=== PATIENT | male | born 1970 | race Caucasian/White ===

== ENCOUNTER → 2022-05-07 10:40 | Outpatient (CLI) | payer OTHER, SELFPAY ==
--- NOTE | ~2022-05-07 | XR_ITS ---
EXAMINATION: XR chest 2V 05/07/2022 11:35 INDICATION: Cough PROCEDURE: 2 view chest COMPARISON: No prior studies for comparison. FINDINGS: The lungs are clear. The cardiomediastinal silhouette is within normal limits. There are no pleural effusions. There is no pneumothorax suspected. IMPRESSION: 1: NO ACUTE CARDIOPULMONARY DISEASE. Reviewed, dictated and finalized at location L. 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
== END ==
PROVIDERS: PCP Clinical Nurse Specialist; Visit Provider Clinical Nurse Specialist
DX: R05.9 Cough, unspecified (principal)
CPT/HCPCS: 71046

== ENCOUNTER → 2022-11-03 08:09 | Outpatient (CLI) | payer OTHER, SELFPAY ==
--- NOTE | ~2022-11-03 | US_ITS ---
Abdominal Sonogram: Real-time sonographic imaging of the abdomen was performed. Clinical History: Abnormal serum enzyme levels Findings: The liver appears echogenic, with no evidence of mass lesion or bile duct dilatation. Main portal vein demonstrates normal direction of flow. The spleen is enlarged, measuring 15.7 cm in tanvi th. The gallbladder is well distended, and appears normal with no evidence of gallstone or wall thic kening. The common bile duct measures 5 mm. The visualized pancreas, aorta, and IVC are unremarkable . The right kidney measures 11.1 cm in length and the left kidney measures 12.2 cm. There is no hyd ronephrosis or renal calculus. Impression: Diffuse fatty infiltration of liver. Splenomegaly. Reviewed, dictated and finalized at location . Impression: Diffuse fatty infiltration of liver. Splenomegaly.
== END ==
PROVIDERS: PCP Physician Assistant; Visit Provider Physician Assistant
DX: R74.8 Abnormal levels of other serum enzymes (principal); K76.0 Fatty (change of) liver, not elsewhere classified; R16.1 Splenomegaly, not elsewhere classified
CPT/HCPCS: 76700

== ENCOUNTER 2023-11-24 15:43 | Outpatient (CLI) | payer OTHER, SELFPAY ==
--- NOTE | ~2023-11-24 | XR_ITS ---
XR toe 1st LT min 2V Ordering provider: Brando Cali MD History: . L97.509 - Non-pressure chronic ulcer of other part of uns... . Comparison: None. FINDINGS: BONES: No acute fracture or dislocation. Degenerative changes in the head of the metatarsal bones. Michaels llux valgus. JOINT SPACES: Osteoarthritic changes of the first metatarsophalangeal joint. SOFT TISSUES: Normal. IMPRESSION: No acute osseous abnormality. Osteoarthritic changes of the first metatarsophalangeal joint. Reviewed, dictated and finalized at location A.
== END 2023-11-24 15:44 | disposition home or self-care (01) ==
LOC: MICIMG 15:45
PROVIDERS: PCP Emergency Medicine; Visit Provider Emergency Medicine
DX: L97.509 Non-pressure chronic ulcer of other part of unspecified foot with unspecified severity (principal); M19.072 Primary osteoarthritis, left ankle and foot
CPT/HCPCS: 73660

== ENCOUNTER 2024-11-21 17:32 | Outpatient (CLI) | payer OTHER, SELFPAY ==
--- NOTE | ~2024-11-21 | XR_ITS ---
EXAMINATION: HAND-MARGARITO ARTHRITIS 3+VIEWS DATE: 11/21/2024 17:44 INDICATION: Osteoarthritis TECHNIQUE: 7 images were obtained COMPARISON: None. FINDINGS: Bone mineralization is within normal limits. No fracture. No dislocation. Severe degenerative change in the first carpometacarpal joint in the left hand. Moderate degenerative change in the first metacarpophalangeal joint in the left hand. Severe degenerative change in the first carpal metacarpal joint in the right hand. Moderate degenerative change in the first metacarpophalangeal joint in the right hand. Soft tissue swelling about both hands. IMPRESSION: 1. Severe degenerative change in the bilateral first carpometacarpal joints. Reviewed, dictated and finalized at location Q.
--- OUTSIDE RECORDS SUMMARY | 2024-11-21 17:35 | XMS_ITS | Clinical Summary ---
Author Organization [facility] Address [address] [place] [address] Care Team Providers Care Joint Terminal Attack Controller Name Role Phone Brando Cali MD Primary Care Provider [phone] Allergies Active Allergy Reactions Criticality Noted Date Comments Levofloxacin Penicillins Active Problems Problem Noted Date Diagnosed Date Carpal tunnel syndrome 11/19/2015 Family History Medical History Relation Name Comments Arthritis Mother Family history of arthritis - (Added by TW Conv) Hypertension Mother Family history of hypertension - (Added by TW Conv) Relation Name Status Comments Mother Social History Tobacco Use Types Packs/Day Years Used Date Smoking Tobacco: Never Personal Safety Answer Date Recorded Have you ever been in or are you currently in a harmful physical or emotional relationship or is someone making you feel afraid or unsafe? 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 Gender Identity Not on file Sexual Orientation Not on file Obstetrics History Last Filed Vital Signs Vital Sign Reading Time Taken Comments Blood Pressure 151/70 02/20/2024 7:15 PM SCHOOL BUS DRIVER/MECHANIC Pulse 98 02/20/2024 7:15 PM SCHOOL BUS DRIVER/MECHANIC Temperature 36.8 C (98.3 F) 02/20/2024 4:19 PM SCHOOL BUS DRIVER/MECHANIC Respiratory Rate 19 02/20/2024 7:15 PM SCHOOL BUS DRIVER/MECHANIC Oxygen Saturation 95% 02/20/2024 7:15 PM SCHOOL BUS DRIVER/MECHANIC Inhaled Oxygen Concentration - - Weight 133.8 kg (295 lb) 02/20/2024 4:19 PM SCHOOL BUS DRIVER/MECHANIC Height 188 cm (6' 2) 02/20/2024 4:19 PM SCHOOL BUS DRIVER/MECHANIC Body Mass Index 37.88 02/20/2024 4:19 PM SCHOOL BUS DRIVER/MECHANIC Plan of Treatment Health Maintenance Due Date Last Done Comments Colon Cancer Screening-Colonoscopy 1970 Depression Screening 1970 Hepatitis C Screening 1970 Prostate Cancer Screening-PSA 1969 DTaP/Tdap/Td Vaccine (1 - Tdap) 1980 Hepatitis B Screening 08/18/1987 Regular Well Visit/Exam 18-64 08/18/1987 Pneumococcal vaccine <65 (1 of 2 - PCV) 1988 Zoster Vaccine (1 of 2) 08/18/2019 Influenza Vaccine (#1) 2024 Insurance CIGNA CIGNA Care Teams Joint Terminal Attack Controller Relationship Specialty Start Date End Date Brando Cali MD [address] [place] [address] [place] [address] PCP - General Family Medicine 02/20/24
--- OUTSIDE RECORDS SUMMARY | 2024-11-21 17:35 | XMS_ITS | Clinical Summary ---
Author Organization [facility] Address [address] [place] [address] Phone Care Team Providers Care Supervisor Liquefaction Name Role Phone Brando Cali MD Primary Care Provider [phone] Allergies Active Allergy Reactions Criticality Noted Date Comments Levofloxacin Anaphylaxis High 03/03/2018 Penicillins Hives Low 03/03/2018 Medications diclofenac (VOLTAREN) 75 MG Tablet Delayed ResponseIndicat ions:Osteoarthr itis,knee pain Take 75 mg by mouth 3 times daily as needed for Moderate or more severe pain. Indications: Joint Damage causing Pain and Loss of Function, knee pain Active montelukast (SINGULAIR) 10 MG Tablet Take 10 mg by mouth every evening. Active albuterol 108 (90 Base) MCG/ACT Aerosol Solution take 2 Puffs by inhalation every 4 hours as needed. Active lisinopril (PRINIVIL, ZESTRIL) 40 MG Tablet Take 40 mg by mouth daily. Active OMEPRAZOLE PO Take 20 mg by mouth daily. Active Multiple Vitamins-Minera ls (MULTIVITAL PO) Take 1 Tablet by mouth daily. Active vitamin B complex-C (ALLBEE-C) Tablet Take 1 Tablet by mouth daily. Active cetirizine (ZyrTEC) 10 MG Tablet Take 10 mg by mouth daily. Active Active Problems Problem Noted Date Diagnosed Date NSTEMI (non-ST elevated myocardial infarction) 1 03/17/2022 Status post coronary artery stent placement 01/06 Elevated LFTs 01/15/2023 Hypertension 01/15/2023 Asthma 01/15/2023 Family History Medical History Relation Name Comments Heart Attack Father Hypertension Father Congestive Heart Failure Maternal Grandfather High Cholesterol Mother Hypertension Mother Osteoarthritis Mother Congestive Heart Failure Paternal Grandfather Relation Name Status Comments Father Maternal Grandfather Mother Alive Paternal Grandfather Social History Tobacco Use Types Packs/Day Years Used Date Smoking Tobacco: Never Smokeless Tobacco: Never Tobacco Cessation:Counseling Given: Not Answered Alcohol Use Standard Drinks/Week Comments Yes 10 (1 standard drink = 0.6 oz pu re alcohol) socially -twice a week Sexually Active Control Partners Comments Not Currently Sex and Gender Information Value Date Recorded Sex Assigned at Not on file 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 Gender Identity Not on file Sexual Orientation Not on file Last Filed Vital Signs Vital Sign Reading Time Taken Comments Blood Pressure 146/98 01/19/2023 1:12 PM GLASSWARE ENGRAVER Pulse 83 01/19/2023 1:12 PM GLASSWARE ENGRAVER Temperature 36.4 C (97.6 F) 01/19/2023 1:12 PM GLASSWARE ENGRAVER Respiratory Rate 16 01/19/2023 1:12 PM GLASSWARE ENGRAVER Oxygen Saturation 98% 01/19/2023 1:12 PM GLASSWARE ENGRAVER Inhaled Oxygen Concentration - - Weight 135.8 kg (299 lb 6.4 oz) 01/19/2023 1:12 PM GLASSWARE ENGRAVER Height 188 cm (6' 2) 01/19/2023 1:12 PM GLASSWARE ENGRAVER Body Mass Index 38.44 01/19/2023 1:12 PM GLASSWARE ENGRAVER Plan of Treatment Health Maintenance Due Date Last Done Comments TdaP Immunization 1970 Hepatitis B Immunization (1 of 3 - 19+ 3-dose series) 1988 Pneumococcal Immunization (5 0+ years) (1 of 2 - PCV) 1988 Cologuard 2014 Colonoscopy 2014 Colorectal Cancer Screening 2014 Immunochemical Fecal Occult Blood 2014 Zoster Immunization (1 of 2) 08/18/2019 PSA Discussion 2024 Influenza Immunization (#1) 2024 SARS-COV-2 Immunization (3 - 2024- season) 2024 08/22/2020, 07/25/2020 Respiratory Syncytial Virus (RSV) Immunization (Adult) (1 - 1-dose 75+ series) 2044 Hepatitis C Virus (HCV) Screening Completed 01/21/2023 Human Papillomavirus (HPV) Immunization Aged Out No longer eligible b ased on patient's age to complete this topic Meningococcal Immunization (ACWY) Aged Out No longer eligible b ased on patient's age to complete this topic Rotavirus Immunization Aged Out No lo nger eligible based on patient's age to complete this topic Medical Devices Implanted Type Area Fence Post Driver Device Identifier Shelf Expiration Date Model / Serial / Lot System Coronary Stent Xience Skypoint Everolimus Eluting 4.00 Mm X 28 Mm / Rapid-Exchange - [id number] Implanted:Qty: 1 on 01/15/2023 by Heri Fischer MD at [facility] IMPLANT [employer] [id number] 12/22/2023 [id number] / / [id number] System Coronary Stent Xience Skypoint Everolimus Eluting 3.50 Mm X 38 Mm / Rapid-Exchange - [id number] Implanted:Qty: 1 on 01/15/2023 by Heri Fischer MD at [facility] IMPLANT [employer] [id number] 07/06/2025 [id number] / / [id number] Procedures Procedure Name Priority Date/Time Associated Diagnosis Comments HEPATITIS PANEL ACUTE (AHP) Routine 01/21/2023 11:21 AM GLASSWARE ENGRAVER NSTEMI (non-ST elevated myocardial infarction) (HCC) from Last 3 Months or Most Recently Relevant to Health Maintenance Results * HEPATITIS PANEL ACUTE (AHP) (01/21/2023 11:21 AM GLASSWARE ENGRAVER) HEPATITIS A IGM ANTIBODY NON DETECTED NON DETECTED [facility] [id number] B 01/21/2023 11:59 PM GLASSWARE ENGRAVER [facility] Comment: IGM Antibodies to HAV not detected. Does not exclude early acute or recovered HAV infection. HEP B CORE AB (IGM) NON DETECTED NON DETECTED [facility] AR[facility] [id number] B 01/21/2023 11:59 PM GLASSWARE ENGRAVER [facility] Comment:IGM anti-HBC not det ected. Does not exclude the possibility of exposure to or infection with HBV. HEPATITIS B SURFACE ANTIGEN NON DETECTED NON DETECTED [facility] [id number] B 01/21/2023 11:59 PM GLASSWARE ENGRAVER [facility] Comment:A nonreactive test r esult does not exclude the possibility of exposure to or infection with Hepatitis B virus. A nonreactive test result in individuals with prior exposure to hepatitis B may be due to antigen levels below the detection limit of this assay or lack of antigen reactivity to the antibodies in this assay. hepatitis C antibody 0.09 <1 S/CO [facility] [id number] B 01/21/2023 11:59 PM GLASSWARE ENGRAVER [facility] Comment: Signal/Cutoff ratio < 0.79 is Nondetected Signal/Cutoff ratio 0.80-0.99 is Grayzone Signal/Cutoff ratio > 0.99 is Detected Supplemental assays are recommended if signal/cutoff ratio is >/=1.00. Signal/cutoff ratio result >/= 5.00 is 97% predictive of positivity for recombinant immunoblot assay (RIBA) and will be reported to the [place] Department of Public Health as required. Blood Venipuncture / Unknown 01/21/2023 11:21 AM GLASSWARE ENGRAVER 01/21/2023 12:34 PM GLASSWARE ENGRAVER us Leena Soriano MD HEMATOLOGY ORDERABLES Final R esult [facility] [address] [place] [address], from Last 3 Months or Most Recently Relevant to Health Maintenance Insurance [address] [address] Advance Directives * Full Code (Latest Code Status on File) Date Activated Date Inactivated Comments 01/15/2023 9:56 AM 01/16/2023 1:51 PM CPR-Full T reatment: FULL ARREST: Attempt Resuscitation/CPR wit intubation and mechanical ventilation. PRE-ARREST: Use entire range of life support measures to stabilize the patient. Care Teams Supervisor Liquefaction Relationship Specialty Start Date End Date Brando Cali MD [address] [facility] [address] [address] PCP - General Family Medicine 01/18/23
== END 2024-11-21 17:33 | disposition home or self-care (01) ==
PROVIDERS: PCP Nurse Practitioner Family; Visit Provider Plastic Surgery
DX: M18.0 Bilateral primary osteoarthritis of first carpometacarpal joints (principal)
CPT/HCPCS: 73130

== ENCOUNTER 2025-02-19 07:26 | Outpatient (CLI) | payer OTHER, SELFPAY ==
--- NOTE | ~2025-02-19 | NM_ITS ---
EXAMINATION: NM noni stress w perfusion DATE: 02/19/2025 10:26 INDICATION: Encounter for preprocedural cardiovascular examination TECHNIQUE: Rest images were obtained following intravenous administration of 10.3 mCi Tc99m tetrofosmin (Myoview). The patient was infused intravenously with Lexiscan (Regadenoson). Then, 31 mCi Tc99m tetrofosmin (Myoview) was administered intravenously, and stress images were obtained, initially in the supine position with repeat post stress images obtained in the prone position. Data was reconstructed into short axis and horizontal and vertical long axis SPECT images. Gated SPECT images were also obtained. COMPARISON: None. FINDINGS: There is likely diaphragmatic attenuation artifact which changes in position positioned along the inferior segments on the imaging obtained in the supine position which shifts to the inferolateral segments on the post stress imaging obtained in the prone position. There is no definite reversible or fixed perfusion abnormality to suggest ischemia or infarction. There is normal left ventricular chamber size, wall motion and ejection fraction. Left ventricular ejection fraction measures 58%. IMPRESSION: 1. Normal myocardial perfusion at rest and during stress. 2. Left ventricular ejection fraction measuring 58%. Reviewed, dictated and finalized at location A. 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
--- NOTE | 2025-02-19 08:46 | EST_ITS ---
Patient Info Name: Gonzalez Poon Age: 54 years : 1970 Gender: Male Ht: 74 in Wt: 295 lbs BSA: 2.69 m2 HR: 65 bpm BP: 145 / 102 mmHg Exam Date: 02/19/2025 8:46 AM Patient Status: O Admit Date: 02/19/2025 Exam Type: CA stress noni w NM A regadenoson stress test was performed. Staff Referring Physician: Ivan Womack DO Attending Provider: Ivan Womack DO Exercise Technologist: Simran Aden Exercise Physician: Ivan Womack DO Summary 1. 1. Negative lexiscan stress test for ischemic ST changes by ECG criteria. 2. 2. Baseline hypertension. 3. 3. Nuclear scan to follow and will be reported separately. Please correlate with it. 4. 4. Patient informed of the above results. Protocol: Lexiscan Stress ECG Details Stage: REST Duration (min): 0 min : 36 sec HR (bpm): 67 SBP (mmHg): --- DBP (mmHg): --- Stage: REST Duration (min): 7 min : 22 sec HR (bpm): 75 SBP (mmHg): 145 DBP (mmHg): 102 Stage: STAGE 1 Duration (min): 1 min : 0 sec HR (bpm): 78 SBP (mmHg): 150 DBP (mmHg): 100 Stage: RECOVERY Duration (min): 1 min : 0 sec HR (bpm): 82 SBP (mmHg): 150 DBP (mmHg): 100 Stage: RECOVERY Duration (min): 2 min : 0 sec HR (bpm): 80 SBP (mmHg): 150 DBP (mmHg): 100 Stage: RECOVERY Duration (min): 3 min : 0 sec HR (bpm): 82 SBP (mmHg): 144 DBP (mmHg): 100 Stage: RECOVERY Duration (min): 3 min : 30 sec HR (bpm): 79 SBP (mmHg): 144 DBP (mmHg): 100 Rest HR: 75 bpm Peak HR: 88 bpm Rest Sys BP: 145 mmHg Peak Sys BP: 150 mmHg Max Pred HR: 165 bpm % Max Pred HR: 53 % Target HR: 140 bpm Max RPP: 13,200 bpm*mmHg Termination Reason: Completed protocol Cardiac Symptoms: Shortness of breath Total Time: 1 min : 0 sec Rest Zarco BP: 102 mmHg Peak Zarco BP: 100 mmHg Total Dose: 0.4 mg Resting ECG Sinus rhythm. Stress ECG No ST changes. Arrhythmias None. Report Signatures
== END 2025-02-19 07:27 | disposition home or self-care (01) ==
PROVIDERS: PCP Nurse Practitioner Family; Visit Provider Internal Medicine Cardiovascular Disease
DX: Z01.810 Encounter for preprocedural cardiovascular examination (principal)
CPT/HCPCS: 78452; 93017; A9502; J2785